=== PATIENT | female | born 1980 | race Two or more races ===

== ENCOUNTER 2019-11-12 22:44 | Inpatient (IN) | payer MEDICAID, OTHER ==
[~2019-11-12] VITALS: Ht 162.6 cm; Wt 82.5 kg
[2019-11-12] MEDS ORDERED: cloNIDine HCL 0.1 MG TAB PO ONE (23:45)
[2019-11-13] MEDS ORDERED: hydrALAZINE HCL 20 MG/ML VL IV ONE ×2 (01:45→03:30)
[2019-11-13 02:24] LABS: Basophils # (auto) 0 10 ^3/uL (0-0.2); Basophils % (auto) 0.3 % (0.0-2.0); Eosinophils # (auto) 0 10 ^3/uL (0-0.8); Eosinophils % (auto) 0.3 % (0.0-7.0); Hematocrit 42.5 % (36.0-46.0); Hemoglobin 14.5 g/dL (12.2-16.2); Lymphocytes # (auto) 0.9 10 ^3/uL (0.4-5.4); Mean Corpuscular Hemoglobin 29.9 pg (28.0-32.0); Mean Corpuscular Hgb Conc. 34.1 g/dL (32.0-36.0); Mean Corpuscular Volume 87.6 fL (80.0-100.0); Monocytes # (auto) 0.4 10 ^3/uL (0-1.3); Monocytes % (auto) 6.1 % (0.0-12.0); Neutrophils # (auto) 5.9 10 ^3/uL (1.6-8.6); Neutrophils % (auto) 81.3 % (37.0-80.0); Platelet Count (auto) 285 10^3/uL (140-450); Red Blood Cells 4.85 10^6/uL (4.0-5.20); Red Cell Distribution Width 13.2 % (11.8-14.3); White Blood Cell 7.2 10^3/uL (4.4-10.8)
[2019-11-13 02:52] LABS: Alanine Aminotransferase 17 U/L (13-56); Albumin 3.8 g/dL (3.4-5.0); Anion Gap 7 (5-15); Aspartate Aminotransferase 17 U/L (15-37); BUN/Creatinine Ratio 14.5; Blood Urea Nitrogen 11 mg/dL (7-18); Calcium 8.5 mg/dL (8.5-10.1); Carbon Dioxide 27 mmol/L (21-32); Chloride 100 mmol/L (98-107); GFR African American 108 mL/min; GFR Non-African American 89 mL/min; Glucose 103 mg/dL (74-106); Sodium 134 mmol/L (136-145)
[2019-11-13 02:56] LABS: Alkaline Phosphatase 76 U/L (45-117); Bilirubin, Total 0.3 mg/dL (0.2-1.0); Total Protein 8.3 g/dL (6.4-8.2)
[2019-11-13] MEDS ORDERED: ASPirin 81 mg TAB PO ONE (03:45)
[2019-11-13] MEDS ORDERED: cloNIDine HCL 0.1 MG TAB PO PRN (05:15)
[2019-11-13] MEDS ORDERED: ONDANSETRON HCL 4 MG/2 ML VIAL IV PRN (05:15)
[2019-11-13] MEDS ORDERED: SODIUM CHLORIDE 0.9% 1,000 ML IV SCH (05:15)
[2019-11-13] MEDS ORDERED: NITROGLYCERIN 0.4 MG SL TAB SL PRN (05:15)
[2019-11-13] MEDS ORDERED: MORPHINE SULF INJ 2 MG/ML SYRINGE 1ML IV PRN (05:15)
[2019-11-13 07:28] LABS: Basophils # (auto) 0 10 ^3/uL (0-0.2); Basophils % (auto) 0.3 % (0.0-2.0); Eosinophils # (auto) 0 10 ^3/uL (0-0.8); Eosinophils % (auto) 0.6 % (0.0-7.0); Hematocrit 41.5 % (36.0-46.0); Lymphocytes # (auto) 1.1 10 ^3/uL (0.4-5.4); Mean Corpuscular Hemoglobin 29.2 pg (28.0-32.0); Mean Corpuscular Hgb Conc. 33.7 g/dL (32.0-36.0); Mean Corpuscular Volume 86.6 fL (80.0-100.0); Monocytes # (auto) 0.6 10 ^3/uL (0-1.3); Monocytes % (auto) 8.9 % (0.0-12.0); Neutrophils % (auto) 74.2 % (37.0-80.0); Nucleated Red Blood Cells % 0.1 %; Platelet Count (auto) 271 10^3/uL (140-450); Red Cell Distribution Width 13.3 % (11.8-14.3); White Blood Cell 6.7 10^3/uL (4.4-10.8)
[2019-11-13 07:45] LABS: Calcium 8.6 mg/dL (8.5-10.1); Potassium 3.5 mmol/L (3.5-5.1)
[2019-11-13 07:47] LABS: INR 1.02 (0.9-1.15); Partial Thromboplastin Time 30.8 sec (23.64-32.05)
[2019-11-13 07:48] LABS: BUN/Creatinine Ratio 12.3
[2019-11-13] MEDS: ACETAMINOPHEN 325 MG TAB PO PRN ×2 (07:55→09:35)
--- NOTE | 2019-11-13 08:00 | NUR ---
Telemetry admit from ER JONATHAN DEUTSCH admitted to Telemetry unit after SBAR received. Patient oriented to KOLTON CAPELLAN RN primary RN, unit, room, bed, and unit policies regarding patient care and visiting hours. Patient now on continuous telemetry monitoring, tele box #[id number]. Patient weighed by bedscale and encouraged to call if they need something. All questions and concerns addressed, patient verbalized understanding.
[2019-11-13 09:00] VITALS: BP 173/99
[2019-11-13] MEDS: DOCUSATE SOD 100 MG CAP PO SCH (09:36)
[2019-11-13] MEDS ORDERED: CLOPIDOGREL BISULFATE 75 MG TAB PO SCH (10:00)
[2019-11-13] MEDS ORDERED: ASPirin 81 mg TAB PO SCH (10:00)
[2019-11-13] MEDS ORDERED: LOSARTAN POTASSIUM 50 MG TAB PO SCH (10:00)
[2019-11-13] MEDS ORDERED: LABETALOL HCL 200 MG TAB PO ONE (10:30)
[2019-11-13] MEDS ORDERED: THIAMINE HCL 100 MG TAB PO ONE (10:30)
[2019-11-13] MEDS ORDERED: MULTIPLE VITAMINS W/ MINERALS TAB PO ONE (10:30)
[2019-11-13] MEDS ORDERED: LORazepam 0.5 MG TAB PO PRN (10:30)
[2019-11-13 11:52] LABS: Urine Bacteria NONE SEEN /hpf (None Seen); Urine Blood 2+ /uL (Negative); Urine Mucus FEW (None Seen); Urine Specific Gravity 1.021 (1.001-1.035); Urine WBC 16 /hpf (0 - 5)
[2019-11-13 11:57] LABS: Alcohol, Urine < 3.0 mg/dL (0-10); Amphetamine Screen, Urine POSITIVE (NEGATIVE); Barbiturate Scree,Urine NEGATIVE (NEGATIVE); Cannabinoid Screen, Urine NEGATIVE (NEGATIVE); Cocaine Screen, Urine NEGATIVE (NEGATIVE)
[2019-11-13 12:04] LABS: Benzodiazephine Screen, Urine NEGATIVE (NEGATIVE); Opiate Scree,Urine NEGATIVE (NEGATIVE); Phencyclidine Screen, Urine NEGATIVE (NEGATIVE)
[2019-11-13 13:00] VITALS: BP 132/77
--- NOTE | 2019-11-13 13:00 | NUR ---
Covid testing Tested patient for covid at this time. Will have specimen walked over to lab.
[2019-11-13] MEDS ORDERED: cefTRIAXone 1GM/50ML D5W 50 ML IV ONE (16:15)
[2019-11-13 17:00] VITALS: BP 140/78
--- NOTE | 2019-11-13 19:16 | NUR ---
Closing Shift Note Patient resting in bed. No distress noted. Report given. Will endorse care thermometer tester RN.
--- NOTE | 2019-11-13 19:30 | NUR ---
OPENING NOTE Received report from day shift RN. Patient is A&O X's 4 with no s/s of distress and denies any pain. Educated patient on POC and to use call light when in need of assistance. Patient verbalized understanding. Bed is in lowest/locked position with side rails up X's 2 and call light is within reach of patient. Will continue care.
[2019-11-13] MEDS ORDERED: ATORVASTATIN 20 MG TAB PO SCH (22:00)
[2019-11-13] MEDS: LABETALOL HCL 200 MG TAB PO SCH (22:14)
[2019-11-13 22:24] VITALS: BP 139/80
[2019-11-14 05:33] VITALS: BP 138/72
--- NOTE | 2019-11-14 07:35 | NUR ---
Opening shift note assumed care of patient from NOC KEO Vazquez. Patient is AOX4 no s/s of distress noted. Bed is in lowest locked position, side rails up x2, and call light within reach. Updated patient on plan of care and patient verbalized understanding. I will continue to monitor q1hr and PRN.
[2019-11-14 09:00] VITALS: BP 130/76
[2019-11-14] MEDS ORDERED: cefTRIAXone 1GM/50ML D5W 50 ML IV SCH (09:00)
[2019-11-14] MEDS ORDERED: MULTIPLE VITAMINS W/ MINERALS TAB PO SCH (10:00)
[2019-11-14] MEDS ORDERED: THIAMINE HCL 100 MG TAB PO SCH (10:00)
[2019-11-14] MEDS: DOCUSATE SOD 100 MG CAP PO SCH (10:07)
[2019-11-14] MEDS: LABETALOL HCL 200 MG TAB PO SCH (10:08)
--- NOTE | 2019-11-14 11:00 | NUR ---
Assessment Regarding social service consult for drug use. Patient is a 39 year old female who is alert and oriented. Prior to admission patient lived with family and functioned independently. 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 Patient stated she has been stressing out and went out with friends and she ended up consuming the drugs. Patient stated she will not do it again. Patient stated she has good family support who where very upset that she consume the drug. Offered patient resource for rehabilitation. Patient refused the resource. Patient said she does not have a drug problem. Patient verbalize understanding d/c plan.
[2019-11-14 13:00] VITALS: BP 133/94
[2019-11-14 14:22] VITALS: BP 133/94
--- NOTE | 2019-11-14 16:22 | NUR ---
Discharge note Discharge instructions given as ordered. Encourage to follow up with PMD as instructed. All questions and concerns addressed. Patient verbalized understanding. IV removed with catheter intact, pressure dressing applied. Telemetry unit returned to ICU. Patient verbalized wanting to walk down to the lobby with all personal belongings. No distress noted at time of departure.
== END 2019-11-14 16:22 | disposition home or self-care (01) | DRG 812 ==
LOC: ER 22:44 → TELE 22:45 → TELE-WESTW 11-13 08:00
PROVIDERS: ADMIT Hospitalist; ATTEND Internal Medicine
DX: T43.621A Poisoning by amphetamines, accidental (unintentional), initial encounter (principal); I16.1 Hypertensive emergency; N39.0 Urinary tract infection, site not specified; R07.89 Other chest pain; I10 Essential (primary) hypertension; E78.5 Hyperlipidemia, unspecified; F19.10 Other psychoactive substance abuse, uncomplicated; Z79.899 Other long term (current) drug therapy; Z90.49 Acquired absence of other specified parts of digestive tract; Z91.14 Patient's other noncompliance with medication regimen; Z03.818 Encounter for observation for suspected exposure to other biological agents ruled out; Z88.8 Allergy status to other drugs, medicaments and biological substances; Z91.19 Patient's noncompliance with other medical treatment and regimen; Y92.89 Other specified places as the place of occurrence of the external cause
CPT/HCPCS: 36415; 71045; 80048; 80053; 80061; 80307; 81001; 83880; 84484; 85025; 85610; 85730; 87086; 93005; G0378; J0696